=== PATIENT | female | born 1980 | race Caucasian/White ===

== ENCOUNTER 2023-09-29 11:02 | Emergency (ER) | payer OTHER ==
[~2023-09-29] VITALS: Ht 182.9 cm; Wt 99.8 kg
[2023-09-29 11:17] VITALS: BP 137/98; PULSE 86; RESP 16
[2023-09-29] MEDS: HYDROCODONE/ACETAMINOPHEN 5/325 MG TAB PO ONE (12:43)
== END 2023-09-29 13:56 | disposition home or self-care (01) ==
LOC: EDH 11:02
DX: S93.492A Sprain of other ligament of left ankle, initial encounter (principal); M19.90 Unspecified osteoarthritis, unspecified site; F32.A Depression, unspecified; F41.9 Anxiety disorder, unspecified; Z98.890 Other specified postprocedural states; W18.39XA Other fall on same level, initial encounter; Y93.01 Activity, walking, marching and hiking; Y92.89 Other specified places as the place of occurrence of the external cause; Y99.8 Other external cause status
CPT/HCPCS: 73610